=== PATIENT | male | born 1945 | race Caucasian/White ===

== ENCOUNTER 2019-04-17 04:42 | Emergency (ER) | payer OTHER, MEDICAID ==
[~2019-04-17] VITALS: Ht 167.6 cm; Wt 86.2 kg
[2019-04-17 04:44] VITALS: BP_SYST 124
[2019-04-17] MEDS ORDERED: KETOROLAC TROMETHAMINE 60 MG/2 ML VIAL IM ONE (05:00)
[2019-04-17] MEDS ORDERED: HYDROcodone/ACETAMIN 5-325 MG TAB (NORCO/ VICODIN) PO ONE (06:45)
[2019-04-17] MEDS ORDERED: fentaNYL CITRATE/PF 100 MCG/2 ML AMP IM ONE (08:45)
[2019-04-17 09:20] VITALS: BP_SYST 122
[2019-04-17] MEDS ORDERED: RIVA10TA PO (16:45)
[2019-04-17] MEDS ORDERED: POTA-10 PO (16:45)
[2019-04-17] MEDS ORDERED: ATEN50TA PO (16:45)
[2019-04-17] MEDS ORDERED: ASPI-1153 PO (16:46)
[2019-04-17] MEDS ORDERED: OMEP40CA33 PO (16:46)
[2019-04-17] MEDS ORDERED: AMLO5TAB92 PO (16:46)
[2019-04-17] MEDS ORDERED: DOXA8TAB2 PO (16:46)
[2019-04-17] MEDS ORDERED: SPIR25TA6 PO (16:46)
[2019-04-17] MEDS ORDERED: ERGO500020 PO (16:46)
== END 2019-04-17 09:20 | disposition home or self-care (01) ==
LOC: SED 04:42
DX: S83.91XA Sprain of unspecified site of right knee, initial encounter (principal); E11.9 Type 2 diabetes mellitus without complications; I10 Essential (primary) hypertension; Z86.73 Personal history of transient ischemic attack (TIA), and cerebral infarction without residual deficits; W01.0XXA Fall on same level from slipping, tripping and stumbling without subsequent striking against object, initial encounter; Y93.89 Activity, other specified; Y92.89 Other specified places as the place of occurrence of the external cause; Y99.8 Other external cause status
CPT/HCPCS: 72170; 73552; 73564; 73700; 96372; 99284; J1885; J3010

== ENCOUNTER 2019-04-17 15:57 | Inpatient (IN) | payer OTHER, MEDICAID ==
[~2019-04-17] VITALS: Ht 165.1 cm; Wt 77.1 kg
[2019-04-17] MEDS ORDERED: POTA-10 PO (16:45)
[2019-04-17] MEDS ORDERED: ATEN50TA PO (16:45)
[2019-04-17] MEDS ORDERED: RIVA10TA PO (16:45)
[2019-04-17] MEDS ORDERED: OMEP40CA33 PO (16:46)
[2019-04-17] MEDS ORDERED: ERGO500020 PO (16:46)
[2019-04-17] MEDS ORDERED: DOXA8TAB2 PO (16:46)
[2019-04-17] MEDS ORDERED: ASPI-1153 PO (16:46)
[2019-04-17] MEDS ORDERED: SPIR25TA6 PO (16:46)
[2019-04-17] MEDS ORDERED: AMLO5TAB92 PO (16:46)
[2019-04-17 16:49] VITALS: BP_SYST 151
[2019-04-17 17:30] LABS: BASOPHILS % (AUTO) 0.5 % (0.0-2.0); EOSINOPHILS # (AUTO) 0.2 K/uL (0.0-0.4); EOSINOPHILS % (AUTO) 3.3 % (0.0-4.0); HEMATOCRIT 38.3 % (36-54); HEMOGLOBIN 12.9 g/dL (14.0-18.0); LYMPHOCYTES # (AUTO) 0.9 K/uL (1.0-5.5); LYMPHOCYTES % (AUTO) 13.1 % (20.5-51.5); MEAN CORPUSCULAR HEMOGLOBIN 30 pg (27-31); MEAN CORPUSCULAR HGB CONC 34 % (32-36); MEAN CORPUSCULAR VOLUME 89 fL (79.0-98.0); MONOCYTES # (AUTO) 0.5 K/uL (0.0-1.0); MONOCYTES % (AUTO) 7.4 % (1.7-9.3); NEUTROPHILS # (AUTO) 5.2 K/uL (1.8-7.7); NEUTROPHILS % (AUTO) 75.7 % (40.0-70.0); PLATELET COUNT (AUTO) 155 K/uL (130-430); RED BLOOD CELL COUNT(AUTO) 4.32 MIL/uL (4.2-6.2); RED CELL DISTRIBUTION WIDTH 14.7 % (9.0-15.0); WHITE BLOOD COUNT (AUTO) 6.9 K/uL (4.8-10.8)
[2019-04-17 17:43] LABS: ALANINE AMINOTRANSFERASE 26 U/L (12-78); ALBUMIN 3.3 g/dL (3.4-4.8); ANION GAP 4 (5-15); ASPARTATE AMINOTRANSFERASE 22 U/L (10-37); CALCIUM 8.8 mg/dL (8.4-11.0); CHLORIDE 102 mmol/L (98-107); CREATININE 1.25 mg/dL (0.55-1.30); GLUCOSE 98 mg/dL (70-99); POTASSIUM 4.1 mmol/L (3.5-5.1); SODIUM SERUM 133 mmol/L (136-145); TOTAL BILIRUBIN 0.6 mg/dL (0.0-1.0); UREA NITROGEN, BLOOD 29 mg/dL (8-21)
[2019-04-17 17:51] VITALS: BP_SYST 151
[2019-04-17] MEDS ORDERED: MILK OF MAGNESIA 30 ML UDC PO PRN (18:30)
[2019-04-17 20:00] VITALS: BP_SYST 140
[2019-04-17] MEDS ORDERED: RIVAROXABAN 10 MG TABLET PO SCH (21:00)
[2019-04-17] MEDS: SENNOSIDES 8.6 MG TABLET PO SCH (21:49)
[2019-04-17] MEDS: APIXABAN 2.5 MG TABLET PO SCH (21:52)
[2019-04-17] MEDS: KCL 20 mEq in D5/0.45NS 1000mL 1,000 ML IV SCH (21:56)
[2019-04-17] MEDS ORDERED: KCL 20 mEq in D5/0.45NS 1000mL 1,000 ML IV ONE (22:05)
[2019-04-18 01:21] VITALS: BP_SYST 144
[2019-04-18 03:17] LABS: BILIRUBIN,URINE NEGATIVE (NEGATIVE); BLOOD, URINE NEGATIVE (NEGATIVE); CLARITY/URINE CLEAR (CLEAR); COLOR,URINE YELLOW (YELLOW); GLUCOSE,URINE NEGATIVE (NEGATIVE); KETONES,URINE NEGATIVE (NEGATIVE); LEUKOCYTE ESTERASE ,URINE NEGATIVE (NEGATIVE); NITRITE, URINE NEGATIVE (NEGATIVE); PH,URINE 5.5 (5.0-8.0); PROTEIN URINE NEGATIVE (NEGATIVE)
[2019-04-18 08:00] VITALS: BP_SYST 140
[2019-04-18] MEDS: DOXAZOSIN MESYLATE 2 MG TABLET PO SCH (09:43)
[2019-04-18] MEDS: SPIRONOLACTONE 25 MG TABLET (ALDACTONE) PO SCH (09:44)
[2019-04-18] MEDS: OMEPRAZOLE 20 MG CAPSULE.DR (PriLOSEC) PO SCH (09:44)
[2019-04-18] MEDS: ASPIRIN 81 MG TABLET(ECOTRIN) PO SCH (09:44)
[2019-04-18] MEDS: APIXABAN 2.5 MG TABLET PO SCH ×2 (09:45→21:08)
[2019-04-18 12:00] VITALS: BP_SYST 129
[2019-04-18 16:00] VITALS: BP_SYST 157
[2019-04-18] MEDS: KCL 20 mEq in D5/0.45NS 1000mL 1,000 ML IV SCH (16:30)
[2019-04-18] MEDS: amLODIPine BESYLATE 5 MG TABLET PO SCH (16:54)
[2019-04-18] MEDS: ATENOLOL 50 MG TABLET (TENORMIN) PO SCH (16:55)
[2019-04-18 19:48] VITALS: BP_SYST 156
[2019-04-18] MEDS: SENNOSIDES 8.6 MG TABLET PO SCH (21:07)
[2019-04-18 22:48] VITALS: BP_SYST 144
[2019-04-19] MEDS: KCL 20 mEq in D5/0.45NS 1000mL 1,000 ML IV SCH ×2 (06:31→22:20)
[2019-04-19 07:19] VITALS: BP_SYST 143
[2019-04-19] MEDS: amLODIPine BESYLATE 5 MG TABLET PO SCH (09:24)
[2019-04-19] MEDS: ATENOLOL 50 MG TABLET (TENORMIN) PO SCH (09:26)
[2019-04-19] MEDS: SPIRONOLACTONE 25 MG TABLET (ALDACTONE) PO SCH (09:26)
[2019-04-19] MEDS: DOXAZOSIN MESYLATE 2 MG TABLET PO SCH (09:27)
[2019-04-19] MEDS: OMEPRAZOLE 20 MG CAPSULE.DR (PriLOSEC) PO SCH (09:27)
[2019-04-19] MEDS: ASPIRIN 81 MG TABLET(ECOTRIN) PO SCH (09:27)
[2019-04-19] MEDS: APIXABAN 2.5 MG TABLET PO SCH ×2 (09:28→22:21)
[2019-04-19 11:15] VITALS: BP_SYST 118
[2019-04-19 15:50] VITALS: BP_SYST 120
[2019-04-19 19:00] VITALS: BP_SYST 134
[2019-04-19 20:00] VITALS: BP_SYST 134
[2019-04-19] MEDS: SENNOSIDES 8.6 MG TABLET PO SCH (22:20)
[2019-04-20 00:04] VITALS: BP_SYST 127
[2019-04-20 08:03] VITALS: BP_SYST 143
[2019-04-20] MEDS: DOXAZOSIN MESYLATE 2 MG TABLET PO SCH (08:07)
[2019-04-20] MEDS: SPIRONOLACTONE 25 MG TABLET (ALDACTONE) PO SCH (08:08)
[2019-04-20] MEDS: OMEPRAZOLE 20 MG CAPSULE.DR (PriLOSEC) PO SCH (08:08)
[2019-04-20] MEDS: amLODIPine BESYLATE 5 MG TABLET PO SCH (08:08)
[2019-04-20] MEDS: ASPIRIN 81 MG TABLET(ECOTRIN) PO SCH (08:08)
[2019-04-20] MEDS: ATENOLOL 50 MG TABLET (TENORMIN) PO SCH (08:08)
[2019-04-20] MEDS: APIXABAN 2.5 MG TABLET PO SCH (08:10)
[2019-04-20 12:31] VITALS: BP_SYST 123
[2019-04-20 12:34] VITALS: BP_SYST 149
[2019-04-20] MEDS: KCL 20 mEq in D5/0.45NS 1000mL 1,000 ML IV SCH (13:46)
[2019-04-20 16:02] VITALS: BP_SYST 149
== END 2019-04-20 19:00 | DRG 640 ==
LOC: SMU 15:57
PROVIDERS: ADMIT Family Medicine; ATTEND Family Medicine
DX: E86.0 Dehydration (principal); N17.0 Acute kidney failure with tubular necrosis; I69.351 Hemiplegia and hemiparesis following cerebral infarction affecting right dominant side; I10 Essential (primary) hypertension; N40.0 Benign prostatic hyperplasia without lower urinary tract symptoms; R29.6 Repeated falls; K59.00 Constipation, unspecified
CPT/HCPCS: 36415; 72170-TC; 73552; 73564; 73700-TC; 80053; 81003; 85025; 87086; 97110-GP; 97116-GP; 97530-GP

== ENCOUNTER 2019-08-18 02:45 | Inpatient (IN) | payer OTHER, MEDICAID ==
[~2019-08-18] VITALS: Ht 172.7 cm; Wt 83.0 kg
[~2019-08-18 02:45] MED LIST: AMLO5TAB92 PO; ASPI-1153 PO; ATEN50TA PO; DOXA8TAB2 PO; ERGO500020 PO; OMEP40CA33 PO; POTA-10 PO; RIVA10TA PO; SPIR25TA6 PO
[2019-08-18 02:50] VITALS: BP_SYST 128
[2019-08-18] MEDS ORDERED: MORPHINE 2 MG/ML INJ. SYRINGE IVP ONE (04:00)
[2019-08-18] MEDS ORDERED: ONDANSETRON 4 MG ODT TAB PO ONE (04:00)
[2019-08-18 05:59] LABS: BASOPHILS % (AUTO) 0.3 % (0.0-2.0); EOSINOPHILS # (AUTO) 0.1 K/uL (0.0-0.4); EOSINOPHILS % (AUTO) 1.1 % (0.0-4.0); HEMATOCRIT 42.5 % (36-54); HEMOGLOBIN 14.4 g/dL (14.0-18.0); LYMPHOCYTES # (AUTO) 0.8 K/uL (1.0-5.5); LYMPHOCYTES % (AUTO) 11.6 % (20.5-51.5); MEAN CORPUSCULAR HEMOGLOBIN 29 pg (27-31); MEAN CORPUSCULAR HGB CONC 34 % (32-36); MEAN CORPUSCULAR VOLUME 86 fL (79.0-98.0); MONOCYTES # (AUTO) 0.6 K/uL (0.0-1.0); MONOCYTES % (AUTO) 8.3 % (1.7-9.3); NEUTROPHILS # (AUTO) 5.7 K/uL (1.8-7.7); NEUTROPHILS % (AUTO) 78.7 % (40.0-70.0); PLATELET COUNT (AUTO) 192 K/uL (130-430); RED BLOOD CELL COUNT(AUTO) 4.94 MIL/uL (4.2-6.2); RED CELL DISTRIBUTION WIDTH 15.1 % (9.0-15.0); WHITE BLOOD COUNT (AUTO) 7.3 K/uL (4.8-10.8)
[2019-08-18 06:09] LABS: INR 1.3 (0.80-1.20); PROTHROMBIN TIME 12.7 SECS (9.5-12.5)
[2019-08-18] MEDS ORDERED: DOCU250C14 PO (07:00)
[2019-08-18] MEDS ORDERED: HYDR-4039 PO (07:00)
[2019-08-18] MEDS ORDERED: DEXT30DR6 EACH EYE (07:02)
[2019-08-18 07:07] LABS: ALANINE AMINOTRANSFERASE 304 U/L (12-78); ALBUMIN 2.8 g/dL (3.4-4.8); ANION GAP 9 (5-15); ASPARTATE AMINOTRANSFERASE 248 U/L (10-37); CHLORIDE 105 mmol/L (98-107); CREATININE 1.05 mg/dL (0.55-1.30); GLUCOSE 97 mg/dL (70-99); POTASSIUM 3.7 mmol/L (3.5-5.1); SODIUM SERUM 137 mmol/L (136-145); TOTAL BILIRUBIN 5.6 mg/dL (0.0-1.0); UREA NITROGEN, BLOOD 10 mg/dL (8-21)
[2019-08-18 07:10] LABS: CALCIUM 8.3 mg/dL (8.4-11.0)
[2019-08-18 07:21] LABS: BILIRUBIN,URINE 3+ (NEGATIVE); BLOOD, URINE NEGATIVE (NEGATIVE); CLARITY/URINE HAZY (CLEAR); COLOR,URINE AMBER (YELLOW); GLUCOSE,URINE NEGATIVE (NEGATIVE); KETONES,URINE NEGATIVE (NEGATIVE); LEUKOCYTE ESTERASE ,URINE NEGATIVE (NEGATIVE); NITRITE, URINE NEGATIVE (NEGATIVE); PROTEIN URINE NEGATIVE (NEGATIVE)
[2019-08-18 07:25] LABS: UROBILINOGEN,URINE >=8 (0.2-1.0)
[2019-08-18] MEDS ORDERED: PIPERACILLIN/TAZO 3.375 GM in NS 50 ML IV ONE (07:30)
[2019-08-18 07:38] LABS: BACTERIA,URINE RARE /HPF (None Seen); RBC,URINE NONE SEEN /HPF (0-3); WBC,URINE 0-3 /HPF (0-3)
[2019-08-18] MEDS ORDERED: NACL 0.9% 1,000 ML IV ONE (07:45)
[2019-08-18] MEDS ORDERED: MORPHINE 2 MG/ML INJ. SYRINGE ONE (07:54)
[2019-08-18] MEDS ORDERED: PIPERACILLIN/TAZOBACTAM 3.375 GM/VIAL (ZOSYN) IV ONE (07:54)
[2019-08-18] MEDS ORDERED: 0.45% NACL 1,000 ML IV SCH (08:00)
[2019-08-18 08:30] VITALS: BP_SYST 129
[2019-08-18] MEDS ORDERED: NS IRRIG SOLN 1000 ML IR ONE (08:30)
[2019-08-18] MEDS ORDERED: SEVOFLURANE 15 MIN GAS INH ONE (08:30)
[2019-08-18] MEDS ORDERED: ROCURONIUM BROMIDE 10 MG/ML (ZEMURON) IV ONE (08:30)
[2019-08-18] MEDS ORDERED: NEOSTIGMINE METHYLSULFATE 1 MG/ML, 10 ML VIAL IVP ONE (08:30)
[2019-08-18] MEDS ORDERED: GLYCOPYRROLATE 0.2 MG/ML VIAL IJ ONE (08:30)
[2019-08-18] MEDS ORDERED: MIDAZOLAM HCL 5 MG/5 ML VIAL IVP ONE (08:30)
[2019-08-18] MEDS ORDERED: LR 1,000 ML IV.SOLN IV ONE (08:30)
[2019-08-18] MEDS ORDERED: PROPOFOL 200MG/ 20ML VIAL (DIPRIVAN) IV ONE (08:30)
[2019-08-18] MEDS ORDERED: fentaNYL CITRATE/PF 100 MCG/2 ML AMP IVP ONE (08:30)
[2019-08-18 08:58] VITALS: BP_SYST 149
[2019-08-18] MEDS ORDERED: ONDANSETRON HCL 4 MG/2 ML VIAL IVP PRN (09:00)
[2019-08-18] MEDS ORDERED: LORazepam 2 MG/ML VIAL IVP PRN (09:00)
[2019-08-18] MEDS ORDERED: MORPHINE 4 MG/ML INJ. SYRINGE IVP PRN (09:00)
[2019-08-18 10:16] LABS: LIPASE 12284 U/L (73-393)
[2019-08-18] MEDS: LR 1,000 ML IV SCH ×2 (15:30→16:22)
[2019-08-18 16:00] VITALS: BP_SYST 165
[2019-08-18] MEDS: MORPHINE 2 MG/ML INJ. SYRINGE IVP PRN (16:22)
[2019-08-18 20:46] VITALS: BP_SYST 143
[2019-08-19 00:30] VITALS: BP_SYST 133
[2019-08-19] MEDS: LR 1,000 ML IV SCH (05:55)
[2019-08-19 07:33] LABS: BASOPHILS % (AUTO) 0.2 % (0.0-2.0); EOSINOPHILS # (AUTO) 0.2 K/uL (0.0-0.4); EOSINOPHILS % (AUTO) 2.4 % (0.0-4.0); HEMATOCRIT 38.7 % (36-54); HEMOGLOBIN 13.1 g/dL (14.0-18.0); LYMPHOCYTES # (AUTO) 0.7 K/uL (1.0-5.5); LYMPHOCYTES % (AUTO) 11.2 % (20.5-51.5); MEAN CORPUSCULAR HEMOGLOBIN 29 pg (27-31); MEAN CORPUSCULAR HGB CONC 34 % (32-36); MEAN CORPUSCULAR VOLUME 87 fL (79.0-98.0); MONOCYTES # (AUTO) 0.5 K/uL (0.0-1.0); MONOCYTES % (AUTO) 7.6 % (1.7-9.3); NEUTROPHILS # (AUTO) 5.2 K/uL (1.8-7.7); NEUTROPHILS % (AUTO) 78.6 % (40.0-70.0); PLATELET COUNT (AUTO) 183 K/uL (130-430); RED BLOOD CELL COUNT(AUTO) 4.47 MIL/uL (4.2-6.2); WHITE BLOOD COUNT (AUTO) 6.6 K/uL (4.8-10.8)
[2019-08-19 07:40] VITALS: BP_SYST 146
[2019-08-19 08:28] LABS: ALANINE AMINOTRANSFERASE 230 U/L (12-78); ALBUMIN 2.6 g/dL (3.4-4.8); ANION GAP 7 (5-15); ASPARTATE AMINOTRANSFERASE 170 U/L (10-37); CALCIUM 8.3 mg/dL (8.4-11.0); CHLORIDE 105 mmol/L (98-107); CREATININE 0.96 mg/dL (0.55-1.30); GLUCOSE 77 mg/dL (70-99); POTASSIUM 3.7 mmol/L (3.5-5.1); SODIUM SERUM 137 mmol/L (136-145); UREA NITROGEN, BLOOD 17 mg/dL (8-21)
[2019-08-19 08:29] LABS: AMYLASE 270 U/L (0-100); LIPASE 1010 U/L (73-393); TOTAL BILIRUBIN 4.5 mg/dL (0.0-1.0)
[2019-08-19 08:30] LABS: C-REACTIVE PROTEIN QUANT 5.5 mg/dL (0-0.5)
[2019-08-19] MEDS ORDERED: IOHEXOL 50 ML IV ONE (08:37)
[2019-08-19] MEDS ORDERED: INDOMETHACIN 50 MG SUPP.RECT RC ONE (08:45)
[2019-08-19] MEDS ORDERED: LR 1,000 ML IV SCH (09:06)
[2019-08-19 09:12] LABS: ERYTHROCYTE SEDIMENTATION RATE 35 MM/HR (0-15)
[2019-08-19] MEDS ORDERED: ONDANSETRON HCL 4 MG/2 ML VIAL IVP PRN (09:15)
[2019-08-19] MEDS ORDERED: MORPHINE 4 MG/ML INJ. SYRINGE IVP PRN ×3 (09:15)
[2019-08-19] MEDS ORDERED: hydrALAZINE HCL 20 MG/ML VIAL ONE (10:12)
[2019-08-19] MEDS ORDERED: hydrALAZINE HCL 20 MG/ML VIAL IVP PRN (10:15)
[2019-08-19 12:35] VITALS: BP_SYST 142
[2019-08-19 14:40] VITALS: BP_SYST 146
[2019-08-19 16:15] VITALS: BP_SYST 137
[2019-08-19 20:50] VITALS: BP_SYST 124
[2019-08-20] VITALS: BP_SYST 123
[2019-08-20] MEDS: LR 1,000 ML IV SCH ×4 (01:37→16:29)
[2019-08-20 07:30] LABS: BASOPHILS % (AUTO) 0.3 % (0.0-2.0); EOSINOPHILS # (AUTO) 0.3 K/uL (0.0-0.4); EOSINOPHILS % (AUTO) 4.4 % (0.0-4.0); HEMATOCRIT 38.1 % (36-54); HEMOGLOBIN 12.9 g/dL (14.0-18.0); LYMPHOCYTES # (AUTO) 0.8 K/uL (1.0-5.5); LYMPHOCYTES % (AUTO) 11.4 % (20.5-51.5); MEAN CORPUSCULAR HEMOGLOBIN 29 pg (27-31); MEAN CORPUSCULAR HGB CONC 34 % (32-36); MEAN CORPUSCULAR VOLUME 87 fL (79.0-98.0); MONOCYTES # (AUTO) 0.6 K/uL (0.0-1.0); MONOCYTES % (AUTO) 8.5 % (1.7-9.3); NEUTROPHILS % (AUTO) 75.4 % (40.0-70.0); PLATELET COUNT (AUTO) 179 K/uL (130-430); WHITE BLOOD COUNT (AUTO) 6.6 K/uL (4.8-10.8)
[2019-08-20 07:32] LABS: ALANINE AMINOTRANSFERASE 194 U/L (12-78); ALBUMIN 2.4 g/dL (3.4-4.8); ANION GAP 4 (5-15); ASPARTATE AMINOTRANSFERASE 137 U/L (10-37); CALCIUM 8.2 mg/dL (8.4-11.0); CHLORIDE 105 mmol/L (98-107); GLUCOSE 90 mg/dL (70-99); LIPASE 290 U/L (73-393); POTASSIUM 3.9 mmol/L (3.5-5.1); SODIUM SERUM 136 mmol/L (136-145); TOTAL BILIRUBIN 3.3 mg/dL (0.0-1.0); UREA NITROGEN, BLOOD 14 mg/dL (8-21)
[2019-08-20 08:00] VITALS: BP_SYST 130
[2019-08-20 12:40] VITALS: BP_SYST 132
[2019-08-20 16:35] VITALS: BP_SYST 157
[2019-08-20 20:00] VITALS: BP_SYST 153
[2019-08-20] MEDS ORDERED: fentaNYL CITRATE/PF 100 MCG/2 ML AMP IVP PRN (21:00)
[2019-08-20] MEDS ORDERED: ONDANSETRON HCL 4 MG/2 ML VIAL IVP PRN (21:00)
[2019-08-20] MEDS ORDERED: CEFAZOLIN 2 GM IVPB PREMIX 50 ML IV ONE (21:02)
[2019-08-20] MEDS ORDERED: BUPIVACAINE /EPINEPHRINE/PF 0.5% 30 ML VIAL INJ ONE (21:02)
[2019-08-20] MEDS ORDERED: GLYCOPYRROLATE 0.2 MG/ML VIAL IJ ONE (21:02)
[2019-08-20] MEDS ORDERED: LR 1,000 ML IV.SOLN IV ONE (21:02)
[2019-08-20] MEDS ORDERED: MIDAZOLAM HCL 5 MG/5 ML VIAL IVP ONE (21:02)
[2019-08-20] MEDS ORDERED: NS IRRIG SOLN 1000 ML IR ONE (21:02)
[2019-08-20] MEDS ORDERED: ROCURONIUM BROMIDE 10 MG/ML (ZEMURON) IV ONE (21:02)
[2019-08-20] MEDS ORDERED: NS 1000 ML IV.SOLN IV ONE (21:02)
[2019-08-20] MEDS ORDERED: fentaNYL CITRATE/PF 100 MCG/2 ML AMP IVP ONE (21:02)
[2019-08-20] MEDS ORDERED: PROPOFOL 200MG/ 20ML VIAL (DIPRIVAN) IV ONE (21:02)
[2019-08-20] MEDS ORDERED: SEVOFLURANE 15 MIN GAS INH ONE (21:02)
[2019-08-20] MEDS ORDERED: NEOSTIGMINE METHYLSULFATE 1 MG/ML, 10 ML VIAL IVP ONE (21:02)
[2019-08-20] MEDS ORDERED: IOHEXOL 50 ML IV ONE (21:25)
[2019-08-20] MEDS: fentaNYL CITRATE/PF 100 MCG/2 ML AMP IVP PRN ×2 (23:38→23:50)
[2019-08-21] VITALS (14 sets, daily range): BP systolic 136–182
[2019-08-21] MEDS: LR 1,000 ML IV SCH ×3 (00:59→16:59)
[2019-08-21] MEDS: MORPHINE 2 MG/ML INJ. SYRINGE IVP PRN ×2 (02:16→09:56)
[2019-08-21 05:45] LABS: BASOPHILS % (AUTO) 0.2 % (0.0-2.0); EOSINOPHILS % (AUTO) 0.5 % (0.0-4.0); HEMATOCRIT 38.6 % (36-54); LYMPHOCYTES # (AUTO) 0.7 K/uL (1.0-5.5); LYMPHOCYTES % (AUTO) 7.1 % (20.5-51.5); MEAN CORPUSCULAR HEMOGLOBIN 29 pg (27-31); MEAN CORPUSCULAR HGB CONC 34 % (32-36); MEAN CORPUSCULAR VOLUME 87 fL (79.0-98.0); MONOCYTES # (AUTO) 0.5 K/uL (0.0-1.0); MONOCYTES % (AUTO) 5.7 % (1.7-9.3); NEUTROPHILS # (AUTO) 8.2 K/uL (1.8-7.7); NEUTROPHILS % (AUTO) 86.5 % (40.0-70.0); PLATELET COUNT (AUTO) 184 K/uL (130-430); RED BLOOD CELL COUNT(AUTO) 4.45 MIL/uL (4.2-6.2); WHITE BLOOD COUNT (AUTO) 9.5 K/uL (4.8-10.8)
[2019-08-21 06:14] LABS: ALANINE AMINOTRANSFERASE 223 U/L (12-78); ALBUMIN 2.6 g/dL (3.4-4.8); ANION GAP 9 (5-15); ASPARTATE AMINOTRANSFERASE 188 U/L (10-37); CALCIUM 8.4 mg/dL (8.4-11.0); CHLORIDE 102 mmol/L (98-107); CREATININE 0.89 mg/dL (0.55-1.30); GLUCOSE 105 mg/dL (70-99); POTASSIUM 3.9 mmol/L (3.5-5.1); SODIUM SERUM 138 mmol/L (136-145); TOTAL BILIRUBIN 2.3 mg/dL (0.0-1.0); UREA NITROGEN, BLOOD 8 mg/dL (8-21)
[2019-08-21] MEDS: NORMAL SALINE 5 ML DISP.SYRIN IVF SCH ×2 (20:19→22:39)
[2019-08-22 01:12] VITALS: BP_SYST 149
[2019-08-22] MEDS: NORMAL SALINE 5 ML DISP.SYRIN IVF SCH ×6 (05:11→22:59)
[2019-08-22 07:15] LABS: BASOPHILS % (AUTO) 0.3 % (0.0-2.0); EOSINOPHILS # (AUTO) 0.3 K/uL (0.0-0.4); EOSINOPHILS % (AUTO) 3.6 % (0.0-4.0); HEMATOCRIT 38.4 % (36-54); LYMPHOCYTES # (AUTO) 0.7 K/uL (1.0-5.5); LYMPHOCYTES % (AUTO) 9.5 % (20.5-51.5); MEAN CORPUSCULAR HEMOGLOBIN 29 pg (27-31); MEAN CORPUSCULAR HGB CONC 34 % (32-36); MEAN CORPUSCULAR VOLUME 87 fL (79.0-98.0); MONOCYTES # (AUTO) 0.8 K/uL (0.0-1.0); MONOCYTES % (AUTO) 9.6 % (1.7-9.3); NEUTROPHILS # (AUTO) 6.1 K/uL (1.8-7.7); PLATELET COUNT (AUTO) 177 K/uL (130-430); RED BLOOD CELL COUNT(AUTO) 4.42 MIL/uL (4.2-6.2); WHITE BLOOD COUNT (AUTO) 7.9 K/uL (4.8-10.8)
[2019-08-22 07:27] LABS: ANION GAP 5 (5-15); CALCIUM 8.3 mg/dL (8.4-11.0); CHLORIDE 103 mmol/L (98-107); CREATININE 0.89 mg/dL (0.55-1.30); GLUCOSE 103 mg/dL (70-99); POTASSIUM 3.6 mmol/L (3.5-5.1); SODIUM SERUM 138 mmol/L (136-145); UREA NITROGEN, BLOOD 6 mg/dL (8-21)
[2019-08-22 07:30] VITALS: BP_SYST 136
[2019-08-22] MEDS: MORPHINE 2 MG/ML INJ. SYRINGE IVP PRN (11:17)
[2019-08-22 11:40] VITALS: BP_SYST 136
[2019-08-22 13:11] VITALS: BP_SYST 138
[2019-08-22 17:07] VITALS: BP_SYST 135
[2019-08-22 20:30] VITALS: BP_SYST 134
[2019-08-22] MEDS: D5/0.45 NS 1,000 ML IV SCH (20:37)
[2019-08-23 00:20] VITALS: BP_SYST 151
[2019-08-23] MEDS: D5/0.45 NS 1,000 ML IV SCH ×2 (04:30→19:17)
[2019-08-23] MEDS: NORMAL SALINE 5 ML DISP.SYRIN IVF SCH ×6 (06:00→21:29)
[2019-08-23 07:18] LABS: BASOPHILS % (AUTO) 0.3 % (0.0-2.0); EOSINOPHILS # (AUTO) 0.3 K/uL (0.0-0.4); EOSINOPHILS % (AUTO) 4.5 % (0.0-4.0); HEMATOCRIT 37.1 % (36-54); HEMOGLOBIN 12.5 g/dL (14.0-18.0); LYMPHOCYTES # (AUTO) 0.9 K/uL (1.0-5.5); LYMPHOCYTES % (AUTO) 11.3 % (20.5-51.5); MEAN CORPUSCULAR HEMOGLOBIN 30 pg (27-31); MEAN CORPUSCULAR HGB CONC 34 % (32-36); MEAN CORPUSCULAR VOLUME 87 fL (79.0-98.0); MONOCYTES # (AUTO) 0.7 K/uL (0.0-1.0); MONOCYTES % (AUTO) 9.1 % (1.7-9.3); NEUTROPHILS # (AUTO) 5.8 K/uL (1.8-7.7); NEUTROPHILS % (AUTO) 74.8 % (40.0-70.0); PLATELET COUNT (AUTO) 180 K/uL (130-430); RED BLOOD CELL COUNT(AUTO) 4.25 MIL/uL (4.2-6.2); RED CELL DISTRIBUTION WIDTH 15.3 % (9.0-15.0); WHITE BLOOD COUNT (AUTO) 7.8 K/uL (4.8-10.8)
[2019-08-23 07:46] LABS: ALANINE AMINOTRANSFERASE 120 U/L (12-78); ALBUMIN 2.3 g/dL (3.4-4.8); ANION GAP 7 (5-15); ASPARTATE AMINOTRANSFERASE 63 U/L (10-37); CALCIUM 7.8 mg/dL (8.4-11.0); CHLORIDE 102 mmol/L (98-107); CREATININE 0.86 mg/dL (0.55-1.30); GLUCOSE 110 mg/dL (70-99); POTASSIUM 3.5 mmol/L (3.5-5.1); SODIUM SERUM 138 mmol/L (136-145); TOTAL BILIRUBIN 1.5 mg/dL (0.0-1.0); UREA NITROGEN, BLOOD 8 mg/dL (8-21)
[2019-08-23 08:00] VITALS: BP_SYST 148
[2019-08-23 11:18] VITALS: BP_SYST 130
[2019-08-23 15:50] VITALS: BP_SYST 145
[2019-08-23 19:55] VITALS: BP_SYST 145
[2019-08-24 00:10] VITALS: BP_SYST 151
[2019-08-24] MEDS: D5/0.45 NS 1,000 ML IV SCH ×3 (03:16→20:15)
[2019-08-24] MEDS: NORMAL SALINE 5 ML DISP.SYRIN IVF SCH ×5 (05:28→22:00)
[2019-08-24 08:55] LABS: BASOPHILS % (AUTO) 0.2 % (0.0-2.0); EOSINOPHILS # (AUTO) 0.3 K/uL (0.0-0.4); EOSINOPHILS % (AUTO) 4.9 % (0.0-4.0); HEMATOCRIT 36.8 % (36-54); HEMOGLOBIN 12.3 g/dL (14.0-18.0); LYMPHOCYTES # (AUTO) 0.9 K/uL (1.0-5.5); LYMPHOCYTES % (AUTO) 12.6 % (20.5-51.5); MEAN CORPUSCULAR HEMOGLOBIN 29 pg (27-31); MEAN CORPUSCULAR HGB CONC 33 % (32-36); MEAN CORPUSCULAR VOLUME 87 fL (79.0-98.0); MONOCYTES # (AUTO) 0.7 K/uL (0.0-1.0); MONOCYTES % (AUTO) 9.9 % (1.7-9.3); NEUTROPHILS # (AUTO) 5.1 K/uL (1.8-7.7); NEUTROPHILS % (AUTO) 72.4 % (40.0-70.0); PLATELET COUNT (AUTO) 201 K/uL (130-430); RED BLOOD CELL COUNT(AUTO) 4.22 MIL/uL (4.2-6.2); RED CELL DISTRIBUTION WIDTH 15.2 % (9.0-15.0)
[2019-08-24 09:04] LABS: ALANINE AMINOTRANSFERASE 96 U/L (12-78); ALBUMIN 2.4 g/dL (3.4-4.8); ANION GAP 6 (5-15); ASPARTATE AMINOTRANSFERASE 46 U/L (10-37); CHLORIDE 102 mmol/L (98-107); CREATININE 0.88 mg/dL (0.55-1.30); GLUCOSE 105 mg/dL (70-99); POTASSIUM 3.5 mmol/L (3.5-5.1); SODIUM SERUM 137 mmol/L (136-145); TOTAL BILIRUBIN 1.4 mg/dL (0.0-1.0); UREA NITROGEN, BLOOD 10 mg/dL (8-21)
[2019-08-24 09:46] VITALS: BP_SYST 142
[2019-08-24 11:17] VITALS: BP_SYST 136
[2019-08-24 15:24] VITALS: BP_SYST 150
[2019-08-24 20:20] VITALS: BP_SYST 156
[2019-08-24] MEDS ORDERED: NON-FORMULARY MEDICATION (Ergocalciferol (Vitamin D2) (Vitamin D2) 50,000 UNIT) PO SCH (21:00)
[2019-08-24] MEDS ORDERED: hydrALAZINE HCL 25 MG TABLET PO SCH (21:00)
[2019-08-24] MEDS: DOCUSATE SODIUM 250 MG CAPSULE PO SCH (22:49)
[2019-08-24] MEDS: hydrALAZINE HCL 25 MG TABLET PO SCH (22:50)
[2019-08-24] MEDS: SPIRONOLACTONE 25 MG TABLET (ALDACTONE) PO SCH (22:51)
[2019-08-25 00:46] VITALS: BP_SYST 136
[2019-08-25] MEDS: D5/0.45 NS 1,000 ML IV SCH (00:53)
[2019-08-25 04:10] VITALS: BP_SYST 141
[2019-08-25] MEDS: NORMAL SALINE 5 ML DISP.SYRIN IVF SCH ×3 (06:00→22:37)
[2019-08-25] MEDS: hydrALAZINE HCL 25 MG TABLET PO SCH ×3 (06:00→22:36)
[2019-08-25 07:30] VITALS: BP_SYST 144
[2019-08-25 07:34] LABS: BASOPHILS % (AUTO) 0.1 % (0.0-2.0); EOSINOPHILS # (AUTO) 0.3 K/uL (0.0-0.4); EOSINOPHILS % (AUTO) 3.8 % (0.0-4.0); HEMOGLOBIN 12.6 g/dL (14.0-18.0); LYMPHOCYTES % (AUTO) 12.8 % (20.5-51.5); MEAN CORPUSCULAR HEMOGLOBIN 30 pg (27-31); MEAN CORPUSCULAR HGB CONC 34 % (32-36); MEAN CORPUSCULAR VOLUME 87 fL (79.0-98.0); MONOCYTES # (AUTO) 0.8 K/uL (0.0-1.0); MONOCYTES % (AUTO) 10.2 % (1.7-9.3); NEUTROPHILS # (AUTO) 5.7 K/uL (1.8-7.7); NEUTROPHILS % (AUTO) 73.1 % (40.0-70.0); PLATELET COUNT (AUTO) 223 K/uL (130-430); RED BLOOD CELL COUNT(AUTO) 4.26 MIL/uL (4.2-6.2); RED CELL DISTRIBUTION WIDTH 15.2 % (9.0-15.0); WHITE BLOOD COUNT (AUTO) 7.8 K/uL (4.8-10.8)
[2019-08-25 07:41] LABS: ALANINE AMINOTRANSFERASE 82 U/L (12-78); ALBUMIN 2.4 g/dL (3.4-4.8); ANION GAP 7 (5-15); ASPARTATE AMINOTRANSFERASE 43 U/L (10-37); CHLORIDE 102 mmol/L (98-107); CREATININE 0.86 mg/dL (0.55-1.30); GLUCOSE 104 mg/dL (70-99); POTASSIUM 3.3 mmol/L (3.5-5.1); SODIUM SERUM 137 mmol/L (136-145); TOTAL BILIRUBIN 1.7 mg/dL (0.0-1.0); UREA NITROGEN, BLOOD 8 mg/dL (8-21)
[2019-08-25] MEDS ORDERED: DOCUSATE SODIUM 250 MG CAPSULE PO ONE (08:00)
[2019-08-25] MEDS: SPIRONOLACTONE 25 MG TABLET (ALDACTONE) PO SCH (08:15)
[2019-08-25] MEDS: POTASSIUM CHLORIDE 10 MEQ TAB.PRT.SR PO SCH (08:15)
[2019-08-25] MEDS ORDERED: SPIRONOLACTONE 25 MG TABLET (ALDACTONE) PO ONE (08:15)
[2019-08-25] MEDS: PANTOPRAZOLE SODIUM 40 MG TAB PO SCH (08:15)
[2019-08-25] MEDS: DOCUSATE SODIUM 250 MG CAPSULE PO SCH (08:16)
[2019-08-25] MEDS: RIVAROXABAN 10 MG TABLET PO SCH ×2 (09:22→22:34)
[2019-08-25 11:19] VITALS: BP_SYST 134
[2019-08-25] MEDS ORDERED: BISACODYL 10 MG/SUPPOSITORY RC PRN (12:45)
[2019-08-25] MEDS ORDERED: NORMAL SALINE 5 ML DISP.SYRIN IVF SCH (14:00)
[2019-08-25 15:19] VITALS: BP_SYST 149
[2019-08-25 21:20] VITALS: BP_SYST 134
[2019-08-26 01:12] VITALS: BP_SYST 146
[2019-08-26] MEDS: NORMAL SALINE 5 ML DISP.SYRIN IVF SCH ×2 (06:26→16:47)
[2019-08-26] MEDS: hydrALAZINE HCL 25 MG TABLET PO SCH ×2 (06:32→16:46)
[2019-08-26 06:45] LABS: BASOPHILS % (AUTO) 0.4 % (0.0-2.0); EOSINOPHILS # (AUTO) 0.2 K/uL (0.0-0.4); EOSINOPHILS % (AUTO) 3.7 % (0.0-4.0); HEMATOCRIT 37.2 % (36-54); HEMOGLOBIN 12.6 g/dL (14.0-18.0); LYMPHOCYTES # (AUTO) 0.7 K/uL (1.0-5.5); LYMPHOCYTES % (AUTO) 11.7 % (20.5-51.5); MEAN CORPUSCULAR HEMOGLOBIN 30 pg (27-31); MEAN CORPUSCULAR HGB CONC 34 % (32-36); MEAN CORPUSCULAR VOLUME 87 fL (79.0-98.0); MONOCYTES # (AUTO) 0.5 K/uL (0.0-1.0); MONOCYTES % (AUTO) 8.5 % (1.7-9.3); NEUTROPHILS # (AUTO) 4.8 K/uL (1.8-7.7); NEUTROPHILS % (AUTO) 75.7 % (40.0-70.0); PLATELET COUNT (AUTO) 220 K/uL (130-430); RED BLOOD CELL COUNT(AUTO) 4.27 MIL/uL (4.2-6.2); WHITE BLOOD COUNT (AUTO) 6.4 K/uL (4.8-10.8)
[2019-08-26 07:35] LABS: ALANINE AMINOTRANSFERASE 70 U/L (12-78); ALBUMIN 2.4 g/dL (3.4-4.8); ANION GAP 5 (5-15); ASPARTATE AMINOTRANSFERASE 38 U/L (10-37); CALCIUM 8.2 mg/dL (8.4-11.0); CHLORIDE 102 mmol/L (98-107); CREATININE 0.89 mg/dL (0.55-1.30); GLUCOSE 92 mg/dL (70-99); POTASSIUM 3.6 mmol/L (3.5-5.1); SODIUM SERUM 136 mmol/L (136-145); TOTAL BILIRUBIN 1.2 mg/dL (0.0-1.0); UREA NITROGEN, BLOOD 12 mg/dL (8-21)
[2019-08-26 08:00] VITALS: BP_SYST 140
[2019-08-26] MEDS: SPIRONOLACTONE 25 MG TABLET (ALDACTONE) PO SCH (10:35)
[2019-08-26] MEDS: POTASSIUM CHLORIDE 10 MEQ TAB.PRT.SR PO SCH (10:35)
[2019-08-26] MEDS: RIVAROXABAN 10 MG TABLET PO SCH (10:36)
[2019-08-26] MEDS: DOCUSATE SODIUM 250 MG CAPSULE PO SCH (10:37)
[2019-08-26] MEDS: PANTOPRAZOLE SODIUM 40 MG TAB PO SCH (10:37)
[2019-08-26 11:33] VITALS: BP_SYST 141
[2019-08-26 15:25] VITALS: BP_SYST 151
[2019-08-26] MEDS ORDERED: BISA10SU61 RC (16:32)
[2019-08-26 17:01] VITALS: BP_SYST 154
[2019-08-26] MEDS ORDERED: BISA5TAB10 PO (17:43)
[2019-08-26] MEDS ORDERED: HYDR-4039 PO (17:43)
== END 2019-08-26 19:07 | DRG 417 ==
LOC: SED 02:45 → SMU 08:00 → SIC 08-20 23:23 → STU 08-21 11:35
PROVIDERS: ADMIT Preventive Medicine Preventive Medicine/Occupational Environmental Medicine; ATTEND Preventive Medicine Preventive Medicine/Occupational Environmental Medicine
PROC: 0FC98ZZ Extirpation of Matter from Common Bile Duct, Via Natural or Artificial Opening Endoscopic (ICD-10-PCS; principal; 2019-08-18)
PROC: 0FT44ZZ Resection of Gallbladder, Percutaneous Endoscopic Approach (ICD-10-PCS; 2019-08-25)
PROC: BF131ZZ Fluoroscopy of Gallbladder and Bile Ducts using Low Osmolar Contrast (ICD-10-PCS; 2019-08-25)
DX: K80.67 Calculus of gallbladder and bile duct with acute and chronic cholecystitis with obstruction (principal); J96.00 Acute respiratory failure, unspecified whether with hypoxia or hypercapnia; K85.10 Biliary acute pancreatitis without necrosis or infection; E43 Unspecified severe protein-calorie malnutrition; R65.10 Systemic inflammatory response syndrome (SIRS) of non-infectious origin without acute organ dysfunction; D64.9 Anemia, unspecified; E11.65 Type 2 diabetes mellitus with hyperglycemia; E78.5 Hyperlipidemia, unspecified; E83.51 Hypocalcemia; F19.10 Other psychoactive substance abuse, uncomplicated; I11.0 Hypertensive heart disease with heart failure; I50.9 Heart failure, unspecified; K59.00 Constipation, unspecified; K76.0 Fatty (change of) liver, not elsewhere classified; Z87.891 Personal history of nicotine dependence; Z68.27 Body mass index [BMI] 27.0-27.9, adult; Z86.73 Personal history of transient ischemic attack (TIA), and cerebral infarction without residual deficits; Z79.01 Long term (current) use of anticoagulants; Z87.81 Personal history of (healed) traumatic fracture
CPT/HCPCS: 36415; 71045; 76000; 76700-TC; 78226; 80048; 80053; 81000-TC; 82150-TC; 83605; 83690-TC; 83880; 84484; 85025; 85610-TC; 85651-TC; 85730-TC; 86140; 86886; 86900; 86901; 87040-TC; 87081; 88304; 93005; 94010; 94760; 96365; 96375; 97110-GP; 97112-GP; 97163; 97530-GP; 99285; A9537; C1727; C1769; G0378; J0360; J0690; J2250; J2270; J2405; J2543; J2704; J2710; J3010; J3490; J7030; J7042; J7120; Q9967